=== PATIENT | male | born 1995 | race Caucasian/White ===

== ENCOUNTER 2021-05-30 20:54 | Emergency (ER) | payer SELFPAY ==
[~2021-05-30] VITALS: Ht 175.3 cm; Wt 95.5 kg
[2021-05-30] MEDS ORDERED: PERTUSS(ACELL),DIPH,TET VAC/PF 0.5 ML SYRINGE IM. ONE (21:30)
[2021-05-30] MEDS ORDERED: SILVER SULFADIAZINE 1% 25 GM CREAM TP ONE (21:30)
[2021-05-30 22:00] VITALS: BP 139/88
== END 2021-05-30 22:35 | disposition home or self-care (01) ==
LOC: EMS 21:01
DX: T23.232A Burn of second degree of multiple left fingers (nail), not including thumb, initial encounter (principal); X10.2XXA Contact with fats and cooking oils, initial encounter; Y93.89 Activity, other specified; Y92.89 Other specified places as the place of occurrence of the external cause; Y99.8 Other external cause status
CPT/HCPCS: 16000; 90471; 90715; 99283